=== PATIENT | female | born 1960 ===

== ENCOUNTER → 2021-10-14 07:55 | Outpatient (BNVA) | payer OTHER, SELFPAY | PROVIDERS: PCP Internal Medicine; Visit Provider Psychiatry & Neurology Neurology ==

== ENCOUNTER 2023-04-05 11:32 | Outpatient (AMB) | payer OTHER, SELFPAY ==
[2023-04-05 11:34] VITALS: BP 164/98; PULSE 88; O2SAT 99; BMI 20.8
--- NOTE | 2023-04-05 11:34 | A.OFFVIS_ITS ---
Intake Vital Signs 04/05/23 11:34 Height 5 ft 7 in Weight 133 lb 2 oz BMI 20.8 BP 164/98 H Blood Pressure Location Rt brachial Position Sitting Pulse 88 Pulse Source Pulse Oximeter Pulse Oximetry (%) 99 Oxygen Delivery Method Room Air Intake Visit Reasons: f/u appt-confirmed Intake Note: Pt presents as a f/u appt. 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 During her last visit she was started on citlopram but she reports side effects - worse depression, feeling agitated, insomnia, panic attacks . she was also referred to psychologist but she did not go. History from 2021- She started noticing difficulty focusing concentrating at work and had trouble with short-term memory issues. 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 She frequently loses train of thought and forgets conversations. She is also very and she is and she does not drive on highways anymore and she is unable to focus better and she has she also has to take notes for everything she feels since it started about 18 months ago it was progressed slowly. She is also under lot of stress for the past 2 years especially since her father in May of 2020 she says the stresses include difficulty at work due to her performance she also describes herself as a loner and that she lives alone. She has 4 sons will help her but they do not live with her. 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 She denies any past history of depression or anxiety. She denies any panic attacks right now. She was seen by her primary care physician and she had some blood work done I do not have the reports the blood work includes B12 folate and thyroid along with complaints of metabolic panel and CBC. She is a chronic smoker she says she has a closet smoker. She denies any head injury. Her mother is about 80 years old and was recently diagnosed with dementia. [facility] Medical History Asthma Depression Smoker Thyroid nodule Surgical History H/O: Family History Mother Dementia Father No problems noted. Social History Alcohol intake: current Alcohol intake frequency: 0-2 drinks per day Patient Tobacco Use Status: Current everyday Tobacco user Substance Use Type: Marijuana Physical Exam Vital Signs: Last Vital Signs Pulse 88 04/05/23 11:34 BP 164/98 H 04/05/23 11:34 Pulse Ox 99 04/05/23 11:34 Oxygen Delivery Method Room Air 04/05/23 11:34 BMI result Body Mass Index 20.8 Const Other: Mini mental status exam - Missed 1 point on immediate recall Good Clock General: cooperative, healthy appearing, comfortable and anxious Nutritional Appearance: average body habitus Orientation/consciousness: patient oriented x3 Neuro Other: generalized mild postural and action tremors General: patient oriented x3, gait normal, tone normal, moves all extremities, no focal motor deficits and CN's II-XI intact bilaterally Cranial nerves: Yes Bilaterally intact EOM present and Yes Nystagmus not present Gait exam (Neuro): Normal gait present Motor exam (neuro): 5/5 motor strength present throughout Psych Speech and movement: Normal speech and movement present Affect: Anxious affect present Attitude: cooperative Assessment & Plan Assessment & Plan (1) Cognitive disorder: Code(s): F09 - Unspecified mental disorder due to known physiological condition (2) Anxiety: Code(s): F41.9 - Anxiety disorder, unspecified (3) Depression: Code(s): F32.A - Depression, unspecified Plan She performed well on mini-mental status exam done on today's visit. Her cognitive issues are likely related to her poorly controlled mood disorder . I will start her on mirtazepine 7.5mg qhs . and refer her to a psychologist for further evaluation of her mood and stabilization. Orders: Referrals Psychology Referral F32.A - Depression, unspecified, F41.9 - Anxiety disorder, unspecified Psychiatry Referral F32.A - Depression, unspecified, F41.9 - Anxiety disorder, unspecified Medications: New mirtazapine 7.5 mg PO BEDTIME 30 tabs 3RF Discontinued citalopram Discontinued Reason: Doctor's Order 10 mg PO DAILY 30 tabs 3RF Coding Level of Care Code Est Pt Level 4 (20057) Diagnoses Cognitive disorder F09 Anxiety F41.9 Depression F32.A
== END 2023-04-05 12:01 | disposition home or self-care (01) ==
PROVIDERS: PCP Internal Medicine; Visit Provider Psychiatry & Neurology Neurology
DX: R41.89 Other symptoms and signs involving cognitive functions and awareness (principal); F41.9 Anxiety disorder, unspecified; F32.A Depression, unspecified
CPT/HCPCS: 99213

== ENCOUNTER → 2023-04-05 11:32 | Outpatient (BNVA) | payer OTHER, SELFPAY | PROVIDERS: PCP Internal Medicine; Visit Provider Psychiatry & Neurology Neurology ==